=== PATIENT | male | born 1950 | race Caucasian/White ===

== ENCOUNTER → 2023-10-20 07:40 | Day surgery (SDC) | payer MEDICARE, BC, SELFPAY ==
[2023-10-20 08:44] LABS: Hematocrit 44.5 % (39.0-52.0); Hemoglobin 15.3 g/dL (13.0-18.0); Mean Corp Hgb Conc. 34.4 g/dL (33.0-37.0); Mean Corpuscular Hgb 32.8 pg (27.0-31.0); Mean Corpuscular Volume 95.3 fL (80.0-94.0); Mean Platelet Volume 9.6 fL (7.4-10.4); Platelet Count 199 10^3/uL (130-400); Red Blood Cell Count 4.67 10^6/uL (4.70-6.10); Red Cell Dist. Width 13.6 % (11.5-14.5); White Blood Cell Count 5.4 10^3/uL (4.8-10.8)
[2023-10-20 09:07] LABS: Blood Urea Nitrogen 16 mg/dl (9-20); Carbon Dioxide 28 mmol/L (22-30); Chloride 107 mmol/L (98-107); Glucose 87 mg/dl (70-99); Potassium 4.6 mmol/L (3.5-5.1); Sodium 139 mmol/L (135-145); eGFR > 60.00
== END ==
LOC: SDSPAT 07:40
PROVIDERS: ATTENDING PHYSICIAN Orthopaedic Surgery Hand Surgery; FAMILY PHYSICIAN Family Medicine
DX: Z01.810 Encounter for preprocedural cardiovascular examination (principal); Z01.812 Encounter for preprocedural laboratory examination; M18.12 Unilateral primary osteoarthritis of first carpometacarpal joint, left hand
CPT/HCPCS: 85027; 36415; 93005; 80048

== ENCOUNTER 2023-11-04 06:36 | Day surgery (SDC) | payer MEDICARE, BC, SELFPAY ==
[2023-10-20 09:05] VITALS: BMI 23.5
[2023-11-04 10:16] VITALS: BMI 23.5
[2023-11-04 10:17] VITALS: BP 175/97
[2023-11-04] MEDS: NORMOSOL-R 1000 IV (10:30)
[2023-11-04] MEDS: CELEBREX 200 MG PO (10:30)
[2023-11-04] MEDS: TYLENOL 1000 MG PO (10:30)
[2023-11-04] MEDS: DILAUDID 0.25 MG IV ×4 (14:47→15:30)
[2023-11-04 15:30] VITALS: BP 143/79
[2023-11-04 15:45] VITALS: BP 153/88
[2023-11-04 16:05] VITALS: BP 141/84
[2023-11-04 16:20] VITALS: BP 141/81
== END 2023-11-04 16:42 | disposition home or self-care (01) ==
LOC: SDS 06:36
PROVIDERS: ATTENDING PHYSICIAN Orthopaedic Surgery Hand Surgery
DX: M18.12 Unilateral primary osteoarthritis of first carpometacarpal joint, left hand (principal)
CPT/HCPCS: 25447